=== PATIENT | female | born 1945 | race Caucasian/White ===

== ENCOUNTER 2016-04-26 08:39 | Inpatient (IN) | payer MEDICARE, BC ==
[2016-04-26] MEDS ORDERED: DUONEB INH ONE ×2 (09:08→09:23)
[2016-04-26] MEDS ORDERED: ALU/MAG/SIM 30 ML UDC PO PRN (11:00)
[2016-04-26] MEDS ORDERED: MAG HYDROX 30 ML UDC PO PRN (11:00)
[2016-04-26] MEDS ORDERED: BISACODYL 10 MG SUPP RECTAL PRN (11:00)
[2016-04-26] MEDS ORDERED: GUAIFEN/DM 10 ML UDC PO PRN (11:00)
[2016-04-26] MEDS ORDERED: BISACODYL EC 5 MG TAB PO PRN (11:00)
[2016-04-26] MEDS ORDERED: GLUCAGON 1 MG VIAL IM PRN (11:00)
[2016-04-26] MEDS ORDERED: SALINE FLUSH 10 ML FLUSH PRN (11:00)
[2016-04-26] MEDS: SALINE FLUSH 10 ML FLUSH SCH ×3 (11:00→20:58)
[2016-04-26] MEDS ORDERED: DEXTROSE 50% SYRINGE 50 ML IV PRN (11:00)
[2016-04-26] MEDS: DUONEB INH SCH ×4 (11:00→23:00)
[2016-04-26] MEDS ORDERED: ACETAMINOPHEN 325 MG TAB ONE (12:39)
[2016-04-26] MEDS ORDERED: ENOXAPARIN 40 MG/0.4 ML SYR SUBQ SCH (14:22)
[2016-04-26 14:37] VITALS: BP_SYST 143; RESP 20; TEMP 97.2
[2016-04-26] MEDS: LEVOFLOXACIN 750 MG/150 ML 150 ML IV SCH (15:05)
[2016-04-26 15:06] VITALS: RESP 20
[2016-04-26] MEDS: Carvedilol 6.25 MG TAB PO SCH ×2 (16:35→20:58)
[2016-04-26] MEDS: VENLAFAXINE HCL 75 MG TAB PO SCH (16:35)
[2016-04-26] MEDS: ISOSORBIDE MONO 30 MG TAB PO SCH ×2 (16:35→20:58)
[2016-04-26] MEDS: ASPIRIN EC 81 MG TAB PO SCH (16:35)
[2016-04-26] MEDS: LEVOTHYROXINE 0.112 MG TAB PO SCH (16:35)
[2016-04-26] MEDS: Furosemide 20 MG TAB PO SCH (16:37)
[2016-04-26] MEDS: METHYLPRED SOD SUCC 40 MG VIAL IV SCH ×2 (17:07→23:55)
[2016-04-26 19:38] VITALS: BP_SYST 110; RESP 20; TEMP 97.8
[2016-04-26] MEDS: ROSUVASTATIN 5 MG TAB PO SCH (20:58)
[2016-04-26 23:59] VITALS: BP_SYST 108; RESP 18; TEMP 98.2
[2016-04-27] MEDS: DUONEB INH SCH ×6 (02:49→22:49)
[2016-04-27] MEDS: TRAMADOL 50 MG TAB PO PRN ×2 (02:57→12:42)
[2016-04-27 03:20] VITALS: BP_SYST 102; RESP 18; TEMP 97.6
[2016-04-27] MEDS: SODIUM CHLORIDE 0.9% FLUSH BAG 500 ML IV SCH (05:31)
[2016-04-27] MEDS: LEVOTHYROXINE 0.112 MG TAB PO SCH (06:30)
[2016-04-27] MEDS: PANTOPRAZOLE 40 MG TAB PO SCH (06:30)
[2016-04-27 08:11] VITALS: BP_SYST 112; RESP 18; TEMP 97.7
[2016-04-27] MEDS: METHYLPRED SOD SUCC 40 MG VIAL IV SCH ×3 (09:20→23:38)
[2016-04-27] MEDS: SALINE FLUSH 10 ML FLUSH SCH ×2 (09:21→20:08)
[2016-04-27] MEDS: VENLAFAXINE HCL 75 MG TAB PO SCH (09:21)
[2016-04-27] MEDS: Furosemide 20 MG TAB PO SCH (09:21)
[2016-04-27] MEDS: Carvedilol 6.25 MG TAB PO SCH ×2 (09:21→20:09)
[2016-04-27] MEDS: ISOSORBIDE MONO 30 MG TAB PO SCH ×2 (09:21→20:09)
[2016-04-27] MEDS: ASPIRIN EC 81 MG TAB PO SCH (09:21)
[2016-04-27] MEDS: LEVOFLOXACIN 750 MG/150 ML 150 ML IV SCH (09:26)
[2016-04-27] MEDS ORDERED: CHLORASEPTIC LOZ PO PRN (09:35)
[2016-04-27 12:36] VITALS: BP_SYST 124; RESP 18; TEMP 97.8
[2016-04-27 16:04] VITALS: BP_SYST 137; RESP 18; TEMP 98
[2016-04-27] MEDS: ROSUVASTATIN 5 MG TAB PO SCH (20:09)
[2016-04-27 20:22] VITALS: BP_SYST 139; RESP 20; TEMP 97.5
[2016-04-27 23:43] VITALS: BP_SYST 140; RESP 16; TEMP 97.7
[2016-04-28] MEDS: DUONEB INH SCH ×3 (02:24→10:25)
[2016-04-28 04:21] VITALS: BP_SYST 127; RESP 12; TEMP 97.4
[2016-04-28] MEDS: SODIUM CHLORIDE 0.9% FLUSH BAG 500 ML IV SCH (06:33)
[2016-04-28] MEDS: PANTOPRAZOLE 40 MG TAB PO SCH (06:34)
[2016-04-28] MEDS ORDERED: MISSING DOSE XX ONE (06:35)
[2016-04-28] MEDS: LEVOTHYROXINE 0.112 MG TAB PO SCH (06:44)
[2016-04-28 08:30] VITALS: BP_SYST 113; RESP 18; TEMP 97.5
[2016-04-28] MEDS: METHYLPRED SOD SUCC 40 MG VIAL IV SCH (08:40)
[2016-04-28] MEDS: ISOSORBIDE MONO 30 MG TAB PO SCH (08:41)
[2016-04-28] MEDS: SALINE FLUSH 10 ML FLUSH SCH (08:41)
[2016-04-28] MEDS: VENLAFAXINE HCL 75 MG TAB PO SCH (08:41)
[2016-04-28] MEDS: LEVOFLOXACIN 750 MG/150 ML 150 ML IV SCH (08:41)
[2016-04-28] MEDS: Furosemide 20 MG TAB PO SCH (08:41)
[2016-04-28] MEDS: Carvedilol 6.25 MG TAB PO SCH (08:42)
[2016-04-28] MEDS: ASPIRIN EC 81 MG TAB PO SCH (08:42)
[2016-04-28 10:10] VITALS: BP_SYST 145; RESP 20
[2016-04-28 10:27] VITALS: BP_SYST 145; RESP 20; TEMP 97.5
[2016-04-28 10:30] VITALS: BP_SYST 145; RESP 20; TEMP 97.5
== END 2016-04-28 12:38 | disposition home or self-care (01) | DRG 192 ==
LOC: ENRESERVTM → ENRESERVDT → ER 08:39 → ENPENDDIS 10:57 → EMR 10:57 → 3S 14:18 → ER 15:57 → 3S 16:44
PROVIDERS: ADMIT Internal Medicine; ATTEND Internal Medicine
DX: J44.1 Chronic obstructive pulmonary disease with (acute) exacerbation (principal); Z99.81 Dependence on supplemental oxygen; I25.10 Atherosclerotic heart disease of native coronary artery without angina pectoris; Z95.5 Presence of coronary angioplasty implant and graft; I10 Essential (primary) hypertension; E05.90 Thyrotoxicosis, unspecified without thyrotoxic crisis or storm; E78.5 Hyperlipidemia, unspecified; K21.9 Gastro-esophageal reflux disease without esophagitis; F32.9 Major depressive disorder, single episode, unspecified; Z95.0 Presence of cardiac pacemaker; Z85.118 Personal history of other malignant neoplasm of bronchus and lung; Z92.21 Personal history of antineoplastic chemotherapy; Z92.3 Personal history of irradiation; Z87.891 Personal history of nicotine dependence; Z79.01 Long term (current) use of anticoagulants
CPT/HCPCS: 36415; 71010; 80048; 80053; 82550; 82553; 82947; 83735; 83880; 84439; 84443; 84484; 85025; 85652; 87804; 87880; 93005; 94640; 94799; 99223; 99238